=== PATIENT | female | born 1935 | race Hispanic/Latino ===

== ENCOUNTER 2017-07-28 20:04 | Inpatient (IN) | payer MEDICARE ==
[2017-07-28] MEDS ORDERED: Sodium Chloride 0.9% 500 ML IV STA (20:30)
[2017-07-28 20:54] LABS: BASO # 0.03 K/mm3 (0.0-2.0); BASO % 0.3 % (0.0-3.0); EOS % 0.4 % (1.5-5.0); GRAN # 6.88 (1.4-6.5); GRAN % 75.6 % (50.0-68.0); HEMOGLOBIN 11.6 g/dL (12.0-16.0); LYMPH # 1.4 (1.2-3.4); LYMPH % 14.8 % (22.0-35.0); MEAN CELL VOLUME 91.8 fl (80.0-105.0); MEAN CORPUSCULAR HEMOGLOBIN 29.8 pg (25.0-35.0); MEAN CORPUSCULAR HGB CONC 32.5 g/dl (31.0-37.0); MEAN PLATELET VOLUME 9.9 fl (7.0-11.0); MONO # 0.8 (0.1-0.6); MONO % 8.9 % (1.0-6.0); RBC 3.89 10^6/uL (3.5-6.1); RED CELL DISTRIBUTION WIDTH 14.4 % (11.5-14.5); WHITE BLOOD COUNT 9.1 10^3/ul (4.5-11.0)
[2017-07-28 21:03] LABS: ALB/GLOB RATIO 1.3 (1.1-1.8); ALBUMIN 3.8 g/dL (3.0-4.8); ALT/SGPT 50 U/L (7-56); AST/SGOT 45 U/L (14-36); BLOOD UREA NITROGEN 17 mg/dL (7-21); CALCIUM 8.6 mg/dL (8.4-10.5); GFR AFRICAN-AMERICAN > 60; GFR NON-AFRICAN AMERICAN > 60
[2017-07-28 21:15] LABS: B-TYPE NATRIURETIC PEPTIDE 203 pg/mL (0-450); TROPONIN I 0.02 ng/mL
--- NOTE | 2017-07-28 21:26 | ED PDOC ---
Arrival/HPI - General Chief Complaint: Dizziness/Lightheaded Time Seen by Provider: 07/28/17 20:23 Historian: Patient - History of Present Illness Narrative History of Present Illness (Text): 07/28/17 21:19 82-year-old female presents today with nausea that started at noon. Patient denies chest pain or shortness of breath. Denies fevers or chills. Patient denies any urinary symptoms. Patient denies abdominal pain. Patient denies headache but states she is feeling lightheaded. No medications have been taken for nausea at home. Patient denies chest pain or shortness of breath. Patient denies sick contacts. Patient states 2 days ago she developed nasal congestion and a feeling of postnasal drip and states she has slight cough from the post nasal drip. Time/Duration: Other (12 noon today) Symptom Onset: Sudden Symptom Course: Unchanged Past Medical History - Provider Review Nursing Documentation Reviewed: Yes - Travel History Have you recently traveled outside [place] w/in the past 3 mons?: No - Infectious Disease Hx of Infectious Diseases: None - Reproductive Menopause: Yes - Cardiac Hx Pacemaker: No - Neurological Hx Paralysis: No - Hematological/Oncological Hx Blood Transfusions: No - Musculoskeletal/Rheumatological Hx Musculoskeletal Disorders: Yes - Psychiatric Hx Substance Use: No - Anesthesia Hx Anesthesia Reactions: No Hx Malignant Hyperthermia: No Family/Social History - Physician Review Nursing Documentation Reviewed: Yes Family/Social History: Unknown Family HX Smoking Status: Unknown If Ever Smoked Hx Alcohol Use: Yes (SOCIAL WINE) Hx Substance Use: No Allergies/Home Meds Allergies/Adverse Reactions: Allergies No Known Allergies Allergy (Verified 05/31/14 12:56) Home Medications: Home Meds Medication Instructions Recorded Confirmed Adalimumab [Humira] 40 mg SC Q2W 05/31/14 07/28/17 Celecoxib [celeBREX] 200 mg PO DAILY 05/31/14 07/28/17 Estradiol [Estradiol Transdermal 1 patch TD SAT 05/31/14 07/28/17 System] Leflunomide [Arava] 20 mg PO DAILY 07/28/17 07/28/17 Prednisone [Sandhya] 5 mg PO DAILY 07/28/17 07/28/17 Review of Systems - Review of Systems Constitutional: absent: Fevers ENT: Sinus Congestion. absent: Sore Throat Respiratory: absent: SOB, Cough Cardiovascular: absent: Chest Pain, Palpitations Gastrointestinal: Nausea. absent: Abdominal Pain, Constipation, Diarrhea, Vomiting Genitourinary Female: absent: Dysuria, Frequency, Hematuria Musculoskeletal: absent: Arthralgias, Back Pain Skin: absent: Rash, Pruritis Neurological: Dizziness. absent: Headache Psychiatric: absent: Anxiety, Depression Physical Exam Vital Signs Reviewed: Yes Vital Signs Temp Pulse Resp BP Pulse Ox 07/28/17 23:00 78 18 142/75 96 07/28/17 21:50 100.6 F H 07/28/17 21:34 100.6 F H 07/28/17 20:34 98.8 F 84 17 155/72 H 96 Temperature: Afebrile Blood Pressure: Normal Pulse: Regular Respiratory Rate: Normal Appearance: Positive for: Well-Appearing, Non-Toxic, Comfortable Pain Distress: None Mental Status: Positive for: Alert and Oriented X 3 - Systems Exam Head: Present: Atraumatic Pupils: Present: PERRL Extroacular Muscles: Present: EOMI Conjunctiva: Present: Normal Ears: Present: Normal, NORMAL TM Mouth: Present: Moist Mucous Membranes Pharnyx: Present: Normal. No: ERYTHEMA, EXUDATE Nose (External): Present: Atraumatic Neck: Present: Normal Range of Motion, Trachea Midline Respiratory/Chest: Present: Good Air Exchange, Rhonchi. No: Clear to Auscultation, Respiratory Distress, Accessory Muscle Use, Retracting Cardiovascular: Present: Regular Rate and Rhythm, Normal S1, S2. No: Murmurs Abdomen: No: Tenderness, Distention, Peritoneal Signs, Rebound, Guarding Back: Present: Normal Inspection. No: Midline Tenderness, Paraspinal Tenderness Upper Extremity: Present: Normal ROM Lower Extremity: Present: Normal ROM Neurological: Present: GCS=15 Skin: Present: Warm, Dry, Normal Color. No: Rashes Psychiatric: Present: Alert, Oriented x 3 Medical Decision Making ED Course and Treatment: 07/28/17 21:28 pt with nausea since noon today. pt with cough x 2 days. cbc; wnl cmp; wnl trop: 0.02 ekg; NSR at 86b/m no st elevations. normal axis, normal intervals. cxr: wnl CT of head; FINDINGS: Brain: Unremarkable. No hemorrhage. No significant white matter disease. No edema. Ventricles: Unremarkable. No ventriculomegaly. Bones/joints: Unremarkable. No acute fracture. Soft tissues: Unremarkable. Sinuses: Unremarkable as visualized. No acute sinusitis. Mastoid air cells: Unremarkable as visualized. No mastoid effusion. IMPRESSION: No evidence of an acute intracranial abnormality rectal temp; 100.6 tylenol 975mg po pt reassessment; pt feeling better after zofran. pt reassessment; nausea has returned; addition zofran given. blood cultures and urine cultures pending. pt with low grade fever in er; with cough; will start rocephin and zithromax for PNA. case discussed with Dr. Cornejo; will Admit observational status to Tele for nausea, r/o acs cough r/o PNA pts casework specialist is dr. lindsay. impression; nausea, dizziness, cough Admit observational status to tele; Dr. cornejo Reassessment Condition: Re-examined, Improved - Lab Interpretations Lab Results: 07/28/17 20:40 07/28/17 20:40 Lab Results 07/28/17 22:20: Urine Color Yellow, Urine Appearance Clear, Urine pH 8.0, Ur Specific O[place]e 1.015, Urine Protein Negative, Urine Glucose (UA) Negative, Urine Ketones 15 H, Urine Blood Negative, Urine Nitrate Negative, Urine Bilirubin Negative, Urine Urobilinogen 0.2, Ur Leukocyte Esterase Negative 07/28/17 20:40: WBC 9.1 D, RBC 3.89, Hgb 11.6 L, Hct 35.7 L, MCV 91.8 D, MCH 29.8, MCHC 32.5, RDW 14.4, Plt Count 131, MPV 9.9, Gran % 75.6 H, Lymph % (Auto ) 14.8 L, Fajardo % (Auto) 8.9 H, Eos % (Auto) 0.4 L, Baso % (Auto) 0.3, Gran # 6.88 H, Lymph # (Auto) 1.4, F[place]ardo # (Auto) 0.8 H, Eos # (Auto) 0.0, Baso # (Auto ) 0.03 07/28/17 20:40: Sodium 137, Potassium 3.5 L, Chloride 101, Carbon Dioxide 27, Anion Gap 13, BUN 17, Creatinine 0.7, Est GFR ( Amer) > 60, Est GFR (Non- Af Amer) > 60, Random Glucose 107, Calcium 8.6, Total Bilirubin 0.5, AST 45 H, ALT 50, Alkaline Phosphatase 73, Lactate Dehydrogenase 550, Total Creatine Kinase 87, Troponin I 0.02, NT-Pro-B Natriuret Pep 203, Total Protein 6.8, Albumin 3.8, Globulin 3.0, Albumin/Globulin Ratio 1.3, Lipase < 10 L - RAD Interpretation Radiology Orders: 07/28/17 20:30 CHEST PORTABLE [RAD] Stat 07/28/17 20:31 HEAD W/O CONTRAST [CT] Stat - Medication Orders Current Medication Orders: Discontinued Medications Acetaminophen (Tylenol 325mg Tab) 975 mg PO STAT STA Stop: 07/28/17 21:36 Last Admin: 07/28/17 21:50 Dose: 975 mg MAR Pain/Vitals Document 07/28/17 21:50 JOL (Rec: 07/28/17 21:52 JOL [id number]) Pain Reassessment Is This A Pain ReAssessment? No Sleep Is patient sleeping during reassessment? No Presence of Pain Presence of Pain No Vitals Temperature (97.6 F-99.6 F) 100.6 F Temperature Source Rectal Aspirin (Aspirin) 325 mg PO STAT STA Stop: 07/28/17 21:55 Last Admin: 07/28/17 22:23 Dose: 325 mg Sodium Chloride (Sodium Chloride 0.9%) 500 mls @ 999 mls/hr IV .Q31M STA Stop: 07/28/17 21:00 Last Admin: 07/28/17 20:44 Dose: 999 mls/hr eMAR Start Stop Document 07/28/17 20:44 JOL (Rec: 07/28/17 20:44 JOL [id number]) Intravenous Solution Start Date 07/28/17 Start Time 20:44 End Date 07/28/17 End time 21:14 Total Infusion Time 30 Ceftriaxone Sodium (Rocephin 1 Gram Ivpb) 1 gm in 100 mls @ 200 mls/hr IVPB STAT STA PRN Reason: Protocol Stop: 07/28/17 22:21 Last Admin: 07/28/17 22:22 Dose: 200 mls/hr eMAR Start Stop Document 07/28/17 22:22 JOL (Rec: 07/28/17 22:23 JOL [id number]) Intravenous Solution Start Date 07/28/17 Start Time 22:22 End Date 07/28/17 End time 22:52 Total Infusion Time 30 Azithromycin (Zithromax 500mg In Ns) 500 mg in 250 mls @ 167 mls/hr IVPB STAT STA PRN Reason: Protocol Stop: 07/28/17 23:21 Last Admin: 07/28/17 23:11 Dose: 167 mls/hr eMAR Start Stop Document 07/28/17 23:11 JOL (Rec: 07/28/17 23:11 JOL [id number]) Intravenous Solution Start Date 07/28/17 Start Time 23:11 End Date 07/29/17 End time 00:41 Total Infusion Time 90 Ondansetron HCl (Zofran Inj) 4 mg IVP STAT STA Stop: 07/28/17 20:31 Last Admin: 07/28/17 20:43 Dose: 4 mg IVP Administration Document 07/28/17 20:43 JOL (Rec: 07/28/17 20:44 JOL [id number]) Charges for Administration # of IVP Administrations 1 Ondansetron HCl (Zofran Inj) 4 mg IVP STAT STA Stop: 07/28/17 23:18 Last Admin: 07/28/17 23:33 Dose: 4 mg IVP Administration Document 07/28/17 23:33 JOL (Rec: 07/28/17 23:33 JOL [id number]) Charges for Administration # of IVP Administrations 1 Disposition/Present on Arrival - Present on Arrival Any Indicators Present on Arrival: No History of DVT/PE: No History of Uncontrolled Diabetes: No Urinary Catheter: No History of Decub. Ulcer: No History Surgical Site Infection Following: None - Disposition Have Diagnosis and Disposition been Completed?: Yes Diagnosis: Nausea, Dizziness, Cough Disposition: HOSPITALIZED Disposition Time: 00:01 Patient Plan: Observation Patient Problems: Current Active Problems Problem Status Onset Nausea Acute Condition: FAIR Referrals: Jaswinder Cornejo MD [Primary Care Provider] - Follow up with primary Forms: 5o9 (Korean)
[2017-07-28 21:51] LABS: LIPASE < 10 U/L (23-300)
[2017-07-28] MEDS ORDERED: cefTRIAXone 1 gm 1 GM/100 ML BAG IVPB STA (21:52)
[2017-07-28] MEDS ORDERED: Azithromycin 500MG/NS 250ml 500 MG/250 ML BAG IVPB STA (21:52)
[2017-07-28 22:45] LABS: URINE BILIRUBIN NEGATIVE (NEGATIVE); URINE BLOOD NEGATIVE (NEGATIVE); URINE GLUCOSE (UA) NEGATIVE (NEGATIVE); URINE LEUKOCYTE ESTERASE NEGATIVE Leu/uL (NEGATIVE); URINE PROTEIN NEGATIVE mg/dL (<30 mg/dL); URINE UROBILINOGEN 0.2 E.U./dL (<1 E.U./dL)
[2017-07-28 22:46] LABS: URINE APPEARANCE CLEAR (CLEAR); URINE COLOR YELLOW (YELLOW)
[2017-07-28] MEDS ORDERED: Naloxone 0.4 mg/ml Inj (Adult) ONE (23:13)
--- NOTE | 2017-07-28 23:44 | CT ---
EXAM: CT Head Without Intravenous Contrast CLINICAL HISTORY: 82 years old, female; Signs and symptoms; Dizziness; Additional info: Dizziness, nausea TECHNIQUE: Axial computed tomography images of the head/brain without intravenous contrast. All CT scans at this facility use one or more dose reduction techniques, viz.: automated exposure control; ma/kV adjustment per patient size (including targeted exams where dose is matched to indication; i.e. head); or iterative reconstruction technique. Coronal and sagittal reformatted images were created and reviewed. COMPARISON: No relevant prior studies available. FINDINGS: Brain: Unremarkable. No hemorrhage. No significant white matter disease. No edema. Ventricles: Unremarkable. No ventriculomegaly. Bones/joints: Unremarkable. No acute fracture. Soft tissues: Unremarkable. Sinuses: Unremarkable as visualized. No acute sinusitis. Mastoid air cells: Unremarkable as visualized. No mastoid effusion. IMPRESSION: No evidence of an acute intracranial abnormality.
[2017-07-29] MEDS ORDERED: Levalbuterol 0.63 MG/3 ML Inhal Soln UD IH STA (02:49)
[2017-07-29 03:13] VITALS: BMI 21.2
--- NOTE | 2017-07-29 05:55 | CP.PCM.PN ---
Subjective - Date & Time of Evaluation Date of Evaluation: 07/29/17 Time of Evaluation: 02:00 - Subjective Subjective: called by nurse pt has frequent pvc on monitor . pt denies complaints has hx of copd pul htn,?pneumonia. Objective - Vital Signs/Intake and Output Vital Signs (last 24 hours): Temp Pulse Resp BP Pulse Ox 99.1 F 79 18 142/68 95 07/29/17 05:37 07/29/17 05:37 07/29/17 05:37 07/29/17 05:37 07/29/17 05:37 Intake and Output: 07/28/17 07/29/17 18:59 06:59 Output Total 400 Balance -400 - Constitutional Appears: No Acute Distress - Head Exam Head Exam: NORMOCEPHALIC - Eye Exam Eye Exam: Normal appearance Pupil Exam: PERRL - ENT Exam ENT Exam: Mucous Membranes Moist - Neck Exam Neck Exam: Full ROM - Respiratory Exam Respiratory Exam: Decreased Breath Sounds - Cardiovascular Exam Cardiovascular Exam: RRR, +S1, +S2 - GI/Abdominal Exam GI & Abdominal Exam: Soft - Rectal Exam Rectal Exam: Deferred - Extremities Exam Extremities Exam: Normal Inspection - Neurological Exam Neurological Exam: Alert, Awake, Oriented x3 - Psychiatric Exam Psychiatric exam: Normal Affect - Skin Skin Exam: Normal Color Assessment and Plan - Assessment and Plan (Free Text) Assessment: frequent pvc. hx of copd ,pulmonary htn ?pneumonia. Plan: pt was given xopnex nebs x1 pt improved.
--- NOTE | 2017-07-29 08:56 | RAD ---
HISTORY: dizziness, nausea, weakness COMPARISON: 09/13/2016 FINDINGS: LUNGS: No active pulmonary disease. PLEURA: No significant pleural effusion identified, no pneumothorax apparent. CARDIOVASCULAR: Normal. OSSEOUS STRUCTURES: No significant abnormalities. VISUALIZED UPPER ABDOMEN: Normal. OTHER FINDINGS: None. IMPRESSION: No active disease.
[2017-07-29 09:42] LABS: BLOOD UREA NITROGEN 13 mg/dL (7-21); CALCIUM 8.2 mg/dL (8.4-10.5); GFR AFRICAN-AMERICAN > 60; GFR NON-AFRICAN AMERICAN > 60
[2017-07-29] MEDS ORDERED: Potassium Chloride 10 mEq ER Tab PO ONE (10:00)
[2017-07-29] MEDS ORDERED: Non Formulary Medication (Prednisone [Rayos] 5 MG) PO SCH (10:00)
[2017-07-29] MEDS ORDERED: Home Med 1 UNIT IH SCH ×2 (12:30)
--- NOTE | 2017-07-29 12:47 | CT ---
PROCEDURE: CT Chest without contrast HISTORY: cough/fever COMPARISON: None. TECHNIQUE: Contiguous axial images were obtained through the chest without intravenous contrast enhancement. Sagittal and coronal reconstructions were performed. Radiation dose (DLP): 155 mGy-cm. This CT exam was performed using one or more of the following dose reduction techniques: Automated exposure control, adjustment of the mA and/or kV according to patient size, and/or use of iterative reconstruction technique. FINDINGS: LUNGS: There is a dense area of consolidation in the posterior left lower lobe. This is consistent with pneumonia. There is a small spiculated scar in the left lung apex. MEDIASTINUM: Unremarkable thoracic aorta. No aneurysm. Normal sized heart. Main pulmonary artery unremarkable. No vascular congestion. No lymphadenopathy. PLEURA: No pleural fluid. No pneumothorax. BONES: No fracture. No destructive lesion. UPPER ABDOMEN: Grossly unremarkable. OTHER FINDINGS: None. IMPRESSION: Dense area of consolidation in the left lower lobe consistent with pneumonia.
[2017-07-29] MEDS: cefTRIAXone 1 gm 1 GM/100 ML BAG IVPB SCH (13:40)
[2017-07-29] MEDS: Azithromycin 500MG/NS 250ml 500 MG/250 ML BAG IVPB SCH (13:41)
--- NOTE | 2017-07-29 16:56 | US ---
PROCEDURE: Bilateral carotid artery duplex ultrasound HISTORY: Carotid stenosis syncope. PHYSICIAN(S): Rajendra Taylor MD. TECHNIQUE: Duplex sonography and color-flow Doppler were used to evaluate the carotid bifurcations and limited segments of the vertebral arteries bilaterally. FINDINGS: There is mild smooth heterogeneous plaque noted at the carotid bifurcations bilaterally. The peak systolic velocity in the proximal right internal carotid artery is 147 cm/sec. This corresponds to a 40-59 percent proximal right ICA stenosis. Normal systolic velocities are noted in the proximal right external carotid artery. There is antegrade flow in the right vertebral artery. The peak systolic velocity in the proximal left internal carotid artery is 139 cm/sec. This corresponds to a 40-59 percent proximal left ICA stenosis. Normal systolic velocities are noted in the proximal left external carotid artery. There is antegrade flow in the left vertebral artery. IMPRESSION: 1. Bilateral 40-59 percent proximal ICA stenoses. 2. Antegrade flow in both vertebral arteries.
--- NOTE | 2017-07-29 17:47 | CON ---
DATE: 07/29/2017 INDICATIONS: Congestion, cough, nausea, and lightheadedness. HISTORY OF PRESENT ILLNESS: This is an 82-year-old woman, known to me, who was admitted through the emergency room yesterday when she presented with congestion, predominantly nasal with cough, nausea, and lightheadedness. There was some shortness of breath. There was no chest pain, orthopnea, PND, syncope, vertigo, palpitation, edema, claudication, fever, chills, rigor, sweats, hemoptysis, abdominal pain, diarrhea, constipation, melena. PAST MEDICAL HISTORY: Notable for rheumatoid arthritis and hypertension. There is no cardiac history. There is a history of mild mitral regurgitation and tricuspid regurgitation on echocardiography and MVP in the past.. She has had bunion surgery. There is no history of rheumatic fever, myocardial infarction, angina, congestive heart failure, arrhythmia. There is no history of stroke, TIA, diabetes, hyperlipidemia, or gout. MEDICATIONS AT THE TIME OF ADMISSION: Include Humira, Celebrex, estradiol transdermal patch, Arava, prednisone, BREO ELLIPTA, vitamin E and vitamin D. ALLERGIES: THERE ARE NO MEDICATION ALLERGIES. SOCIAL HISTORY: She lives at home. She is ambulatory. She does not smoke cigarettes. She drinks alcohol infrequently on social occasions. FAMILY HISTORY: Noncontributory. REVIEW OF SYSTEMS: A 10-point review of systems is otherwise unremarkable except as noted above. PHYSICAL EXAMINATION: GENERAL: She is a well-developed woman, lying in bed on telemetry, in no acute distress. VITAL SIGNS: She is in sinus rhythm, PVCs are noted, heart rate 79 beats per minute. Temperature max 100.6, currently 99.1. Blood pressure 142/68, respirations 18, O2 sat 95% to 97% on room air. HEENT: Reveal no neck vein distention, thyromegaly, or carotid bruits. Mucous membranes are moist. Conjunctivae are pink. NECK: Supple. LUNGS: Lung davison clear. HEART: Reveals normal first and second heart sounds. Soft systolic murmur at the lower left sternal border. ABDOMEN: Soft. Bowel sounds are present. No mass, organomegaly, tenderness, rebound, or guarding. No CVA tenderness. No palpable abdominal aortic aneurysm. EXTREMITIES: Reveal no cyanosis, clubbing, or edema. NEUROLOGIC: Awake, alert, and oriented. SKIN: Warm and dry. No rash or cellulitis. PSYCHIATRIC: Normal as to mood and affect. LABORATORY AND IMAGING: Chest x-ray is a portable study, it is not yet interpreted. To me, it shows clear lung davison, no evidence of CHF, infiltrate, or effusion. EKG shows sinus rhythm, no acute changes. CT scan of the head shows no evidence of acute intracranial abnormality. White count normal, hemoglobin of 11.6, hematocrit 35.7, platelet count 131,000. Electrolytes normal with a potassium of 3.5. BUN 17, creatinine 0.7. Mild elevation of AST is noted, otherwise LFTs unremarkable. CK 87, troponin negative x2. BNP 203. Lipase less than 10. Urinalysis noted. IMPRESSION: Mirtha Wills is an 82-year-old woman admitted with nasal congestion, cough, nausea, and lightheadedness, not feeling well, came to the emergency room, admitted with possible pneumonia, await official chest x-ray interpretation, low-grade fever. I will review her old records. She has gotten antibiotics. She is cultured. She is on IV fluids. She feels better this morning. I will follow along with you. I will make additional recommendations based on her clinical course. We will continue telemetry. We will check for postural vital signs. We will continue her usual medications for now. Carroll Santana MD [facility]
--- NOTE | 2017-07-29 17:57 | CARD ---
APPROVED REPORT EKG Measurement Heart [id number] <Conclusion> Normal sinus rhythm Possible Left atrial enlargement Borderline ECG
[2017-07-29] MEDS ORDERED: Home Med 1 UNIT OD SCH ×2 (18:00)
[2017-07-29] MEDS ORDERED: [UNRECOGNIZED DRUG - OTHER] OD SCH ×2 (18:00→21:31)
[2017-07-29] MEDS: Levalbuterol 1.25 MG/3 ML Inhal Soln UD IH SCH (19:45)
--- NOTE | 2017-07-29 23:16 | HP ---
DATE: 07/29/2017 HISTORY OF PRESENT ILLNESS: The patient is 82-year-old, states she had eye surgery cataract done on her right eye on Saturday, did well on Saturday and , but Saturday she started to have upper respiratory symptoms, had cough, congestion, started to have runny stuffy nose, headache, ear pressure, and yesterday evening when she got up, she was unable to stand up or walk, so she called her daughter who called ambulance and she was brought to emergency room, did have fever at home, denies any nausea or vomiting. No history of hemoptysis. No hematemesis. PAST MEDICAL HISTORY: Significant for: 1. Hypertension. 2. Rheumatoid arthritis. 3. Recent cataract extraction done. ALLERGIES: NOT ALLERGIC TO ANY MEDICATIONS. MEDICATION AT HOME: The patient is on oxybutynin 5 mg daily, Breo Ellipta, Celebrex 200 daily, Humira 40 mg subcu every other week. She is on estradiol or transdermal patch 5 mg of prednisone daily and mg daily. SOCIAL HISTORY: She is single, lives with her daughter, used to be a heavy smoker in remote past. PHYSICAL EXAMINATION GENERAL: The patient is awake, alert, oriented, communicative. VITAL SIGNS: The patient is afebrile, pulse 79, respirations 18, blood pressure 142/68. LUNGS: Bilateral good airflow. Few expiratory rhonchi. HEART: S1 and S2 audible. ABDOMEN: Soft. Nontender. No rebound. No guarding. NEUROLOGIC: The patient is awake, alert, oriented, communicative. LABORATORY EXAM: WBC is 9.1, hemoglobin 11.6, hematocrit 35.7, platelet of 131. Chemistry: Sodium 141, potassium 3.8, chloride 107, CO2 of 27, BUN 13, creatinine 0.7, blood sugar of 98, calcium 8.2. AST 45. Two sets of troponin is negative. CT scan of the head. No evidence of acute intracranial abnormality. X-ray of chest is unremarkable. ASSESSMENT: 1. Upper respiratory symptoms. 2. Vertigo. 3. History of hypertension. 4. Rheumatoid arthritis. 5. Probably benign positional vertigo. PLAN: We will start her on Antivert. I will order for CT of the chest, start her on Claritin. She is on prednisone 5 mg daily for her rheumatoid arthritis, we will continue that. Request for physical therapy. We will reevaluate in a.m. if the patient feels better, we will make discharge plans for tomorrow. Jaswinder Cornejo MD
--- NOTE | 2017-07-30 07:55 | CP.PCM.PN ---
Subjective - Date & Time of Evaluation Date of Evaluation: 07/30/17 Time of Evaluation: 07:00 - Subjective Subjective: Stable on 2R. No CP or SOB. No dizziness now. She did feel flushed earlier this AM. V/S noted. 99.9, RSR at 76 BPM. Normal orthostatic V/S. PE: Lungs: clear cor.: S1S2 Abd.: soft Ext.: no edema Neuro.: alert BC X2 NG at [address] chest noted: LLL infiltrate Car. U/S: Bilat 40 - 59% Objective - Vital Signs/Intake and Output Vital Signs (last 24 hours): Temp Pulse Resp BP Pulse Ox 99.9 F H 76 18 164/83 H 94 L 07/30/17 06:00 07/30/17 06:00 07/30/17 06:00 07/30/17 06:00 07/30/17 06:00 Intake and Output: 07/30/17 07/30/17 06:59 18:59 Intake Total 480 Balance 480 - Medications Medications: Current Medications Home Med (Home Med) 1 unit PO DAILY [facility] Home Med (Home Med) 0 unit IH DAILY [facility] Home Med (Home Med) 0 unit IH DAILY [facility] Home Med (Home Med) 0 unit OD BID [facility] Ceftriaxone Sodium (Rocephin 1 Gram Ivpb) 1 gm in 100 mls @ 100 mls/hr IVPB DAILY [facility] PRN Reason: Protocol Last Admin: 07/29/17 13:40 Dose: 100 mls/hr Azithromycin (Zithromax 500mg In Ns) 500 mg in 250 mls @ 167 mls/hr IVPB DAILY [facility] PRN Reason: Protocol Last Admin: 07/29/17 13:41 Dose: 167 mls/hr Levalbuterol HCl (Xopenex) 1.25 mg IH TIDRESP [facility] Last Admin: 07/29/17 19:45 Dose: 1.25 mg Loratadine (Claritin) 10 mg PO DAILY [facility] Last Admin: 07/29/17 13:41 Dose: 10 mg Meclizine HCl (Antivert) 12.5 mg PO TID [facility] Last Admin: 07/29/17 18:39 Dose: Not Given Meloxicam (Mobic) 15 mg PO DAILY [facility] Non-Formulary Medication (Celecoxib [Celebrex]) 200 mg PO HS [facility] Last Admin: 07/30/17 00:00 Dose: Not Given Non-Formulary Medication (Oxybutynin [Oxytrol For Women]) 1 each TD Q72 MICAH Prednisone (Prednisone Tab) 5 mg PO DAILY MICAH Last Admin: 07/29/17 10:02 Dose: 5 mg Promethazine HCl/Dextromethorphan (Phenergan Dm Syrup) 5 ml PO Q6H PRN PRN Reason: Cough - Labs Labs: 07/29/17 08:30 Assessment and Plan - Assessment and Plan (Free Text) Assessment: Cough, Congestion, Lightheadedness, Fever LLL pneumonia on CT Chest HBP RA CVD S/P recent cataract surgery H/O MVP, Mild MR and TR on echo Plan: AB OOB as prosper. ASA 81/day Out-pt echo planned for next week.
[2017-07-30] MEDS: Levalbuterol 1.25 MG/3 ML Inhal Soln UD IH SCH ×3 (08:05→20:40)
[2017-07-30] MEDS: cefTRIAXone 1 gm 1 GM/100 ML BAG IVPB SCH (09:08)
[2017-07-30] MEDS ORDERED: Home Med 1 UNIT PO SCH (10:00)
[2017-07-30] MEDS: INCRUSE 62.5 MCG IH SCH (10:10)
[2017-07-30 10:15] LABS: BASO # 0.02 K/mm3 (0.0-2.0); BASO % 0.4 % (0.0-3.0); EOS # 0.1 (0.0-0.7); EOS % 1.5 % (1.5-5.0); GRAN # 3.28 (1.4-6.5); GRAN % 69.1 % (50.0-68.0); HEMOGLOBIN 11.1 g/dL (12.0-16.0); LYMPH # 1.1 (1.2-3.4); LYMPH % 22.2 % (22.0-35.0); MEAN CELL VOLUME 92.7 fl (80.0-105.0); MEAN CORPUSCULAR HEMOGLOBIN 30.2 pg (25.0-35.0); MEAN CORPUSCULAR HGB CONC 32.6 g/dl (31.0-37.0); MEAN PLATELET VOLUME 9.3 fl (7.0-11.0); MONO # 0.3 (0.1-0.6); MONO % 6.8 % (1.0-6.0); RBC 3.68 10^6/uL (3.5-6.1); RED CELL DISTRIBUTION WIDTH 14.7 % (11.5-14.5); WHITE BLOOD COUNT 4.7 10^3/ul (4.5-11.0)
[2017-07-30] MEDS: Azithromycin 500MG/NS 250ml 500 MG/250 ML BAG IVPB SCH (10:16)
[2017-07-30] MEDS: LEFLUNOMIDE 20 MG PO SCH (10:16)
[2017-07-30 10:29] LABS: ALB/GLOB RATIO 1.1 (1.1-1.8); ALBUMIN 3.4 g/dL (3.0-4.8); ALT/SGPT 76 U/L (7-56); AST/SGOT 68 U/L (14-36); BLOOD UREA NITROGEN 14 mg/dL (7-21); CALCIUM 8.2 mg/dL (8.4-10.5); GFR AFRICAN-AMERICAN > 60; GFR NON-AFRICAN AMERICAN > 60
--- NOTE | 2017-07-30 14:22 | PN ---
DATE: 07/30/2017 SUBJECTIVE: The patient is 82-year-old, seen and examined, sitting in chair, still feels sick, has cough, congestion with body aches and pain and feels chills at time, having cough. Denies any nausea or vomiting. PHYSICAL EXAMINATION: VITAL SIGNS: She has a temperature of 99.9, pulse 76, ____ 147/81. LUNGS: Soft crackle at the right lower lung area and in the left lower lung area. HEART: S1 and S2 audible. ABDOMEN: Soft, nontender. No rebound, no guarding. NEUROLOGIC: The patient is awake, alert, and oriented. Able to communicate. LABORATORY DATA: WBC 12.7, hemoglobin 11, hematocrit 34, platelets 130. Chemistry: Sodium 140, potassium 3.2, chloride 106, CO2 24, BUN 14, creatinine 0.7, blood sugar 185, phosphorus is 1.6. Blood cultures and urine cultures are negative. She had CT scan of the chest done that shows dense area of consolidation in the left lower lobe consistent with pneumonia. ASSESSMENT: 1. Community-acquired pneumonia. 2. Hypokalemia. 3. Rheumatoid arthritis. 4. Hypertension. PLAN: We will continue the patient on current antibiotic. I will discontinue Telemetry. Supplement potassium. Currently, she is on Rocephin and Flagyl. We will continue that and we will follow up this patient in the morning. Jaswinder Cornejo MD
[2017-07-30] MEDS: Potassium & Sodium Phosphate PO SCH (18:24)
[2017-07-30] MEDS: GATIFLOXACIN OD SCH (18:27)
[2017-07-30] MEDS: BROMFENAC OD SCH (18:27)
[2017-07-30] MEDS: PREDNISOLONE OD SCH (18:27)
[2017-07-30] MEDS ORDERED: Home Med 1 UNIT PO STA (23:38)
[2017-07-31 07:00] VITALS: O2SAT 97
[2017-07-31] MEDS: Levalbuterol 1.25 MG/3 ML Inhal Soln UD IH SCH ×3 (08:26→20:35)
[2017-07-31] MEDS: LEFLUNOMIDE 20 MG PO SCH (10:47)
[2017-07-31] MEDS: cefTRIAXone 1 gm 1 GM/100 ML BAG IVPB SCH (10:49)
[2017-07-31] MEDS: BROMFENAC OD SCH ×3 (10:50→17:38)
[2017-07-31] MEDS: GATIFLOXACIN OD SCH ×3 (10:50→17:38)
[2017-07-31] MEDS: PREDNISOLONE OD SCH ×3 (10:50→17:38)
[2017-07-31] MEDS: Azithromycin 500MG/NS 250ml 500 MG/250 ML BAG IVPB SCH (10:50)
[2017-07-31] MEDS: INCRUSE 62.5 MCG IH SCH (10:51)
[2017-07-31] MEDS: Potassium & Sodium Phosphate PO SCH ×2 (10:51→17:38)
--- NOTE | 2017-07-31 11:13 | PN ---
DATE: 07/31/2017 SUBJECTIVE: The patient is seen lying in bed on telemetry. She is comfortable at present time. She denies any chest pain or lightheadedness. Her cough is improving. CURRENT MEDICATIONS: Include Celebrex, Claritin, Arava, Incruse inhaler, Breo Ellipta inhaler, prednisone 5 mg daily, Rocephin, Xopenex and Zithromax. OBJECTIVE: GENERAL: She is an elderly woman, appears comfortable at rest. VITAL SIGNS: Her blood pressure is 140/76 with pulse of 82 and sinus respirations are 14. She is afebrile. HEENT: No JVD. CHEST: Bilateral scattered rhonchi. HEART: PMI displaced laterally with soft systolic murmur in left sternal border. ABDOMEN: Soft and nontender. Normoactive bowel sounds. EXTREMITIES: No edema. DIAGNOSTIC DATA: No blood work pending from this morning. IMPRESSION: 1. Left lower lobe pneumonia, clinically improved. 2. History of hypertension. 3. History of mitral and tricuspid regurgitation. RECOMMENDATIONS: Current medications should be continued at the present time. If she has recurrence of vertigo, Antivert can be continued. No further cardiac workup appears necessary at this time. We will be happy to follow along as needed. Mark Mejias MD MTDD
[2017-07-31] MEDS ORDERED: guaiFENesin DM 200 mg-20 mg/10 ml UD PO PRN (12:00)
--- NOTE | 2017-07-31 16:08 | PN ---
DATE: 07/31/2017 SUBJECTIVE: Patient is 82 years old, seen and examined. States she still feels she has off and on, still having cough with mild shortness of breath. OBJECTIVE: VITAL SIGNS: She is afebrile, pulse 75, respirations 18, blood pressure 128/63. LUNGS: Bilateral fair airflow. Soft crackle at the bases. HEART: S1, S2 audible. ABDOMEN: Soft, nontender, no rebound, no guarding. NEUROLOGIC: She is awake, alert, oriented, communicative. EXTREMITIES: Bilateral legs, no edema. LABORATORY DATA: Blood cultures and urine cultures are negative. ASSESSMENT: 1. Community-acquired pneumonia. 2. [id number] carotid stenosis. 3. Hypertension. 4. Rheumatoid arthritis. 5. Status post near syncope. 6. Left lower lobe pneumonia. PLAN: We will continue patient on current antibiotics. Continue nebulizer treatment. Add some antitussives, and patient is on maintenance medication also. I will change her meclizine to p.r.n. and will reevaluate patient in a.m. Possible discharge plan in a day or two. Jaswinder Cornejo MD
[2017-07-31] MEDS: Promethazine DM 6.25 mg-15 mg/5 ml Syrup PO PRN (23:03)
[2017-08-01 06:37] VITALS: BP 158/79; PULSE 65; RESP 21; TEMP 97.5
[2017-08-01] MEDS: Levalbuterol 1.25 MG/3 ML Inhal Soln UD IH SCH ×2 (07:28→13:19)
[2017-08-01 07:35] LABS: ALB/GLOB RATIO 1.1 (1.1-1.8); ALBUMIN 3.3 g/dL (3.0-4.8); ALT/SGPT 68 U/L (7-56); AST/SGOT 53 U/L (14-36); BLOOD UREA NITROGEN 23 mg/dL (7-21); CALCIUM 8.4 mg/dL (8.4-10.5); GFR AFRICAN-AMERICAN > 60; GFR NON-AFRICAN AMERICAN > 60
[2017-08-01] MEDS: Potassium & Sodium Phosphate PO SCH (09:50)
[2017-08-01] MEDS: LEFLUNOMIDE 20 MG PO SCH (09:51)
[2017-08-01] MEDS: GATIFLOXACIN OD SCH (09:51)
[2017-08-01] MEDS: PREDNISOLONE OD SCH (09:51)
[2017-08-01] MEDS: BROMFENAC OD SCH (09:51)
[2017-08-01] MEDS: INCRUSE 62.5 MCG IH SCH (09:53)
[2017-08-01] MEDS: cefTRIAXone 1 gm 1 GM/100 ML BAG IVPB SCH (09:56)
[2017-08-01] MEDS ORDERED: OXYBUTYNIN TD SCH (10:00)
[2017-08-01] MEDS: Promethazine DM 6.25 mg-15 mg/5 ml Syrup PO PRN (10:53)
--- NOTE | 2017-08-02 10:09 | DS ---
HISTORY OF PRESENT ILLNESS: Patient is 82 years old, who came to emergency room because of cough, congestion, shortness of breath; felt very weak, dizzy as if she is going to pass out. So, daughter called ambulance and she was brought to the emergency room. She was found to have left lower lobe pneumonia, treated with IV antibiotics. Seems to be doing well, wants to go home. PHYSICAL EXAMINATION: VITAL SIGNS: She is afebrile, pulse 65, respirations 21, blood pressure 158/79. LUNGS: Bilateral fair airflow. A few expiratory rhonchi with soft crackle at left lower lung region. HEART: S1 and S2 audible. ABDOMEN: Soft, nontender, no rebound, no guarding. NEUROLOGIC: She is awake, alert, oriented, communicative. LABORATORY DATA: Sodium is 141, potassium 4, chloride 108, CO2 of 26, BUN 23, creatinine 0.6, blood sugar of 93. ASSESSMENT: 1. Rheumatoid arthritis. 2. Hypertension. 3. Recent cataract extraction. PLAN: Patient is being discharged home on Zithromax 250 daily for 6 more days, Vantin 100 mg twice a day for 6 more days and 200 mg twice a day for 6 more days and then she will followup with me in the office in a week and she will resume her usual nebulizer medication. Jaswinder Cornejo MD
== END 2017-08-01 15:07 | disposition home or self-care (01) | DRG 194 ==
LOC: ED 20:04 → ERH 07-29 00:17 → 2RNO 07-29 02:11
PROVIDERS: ADMIT Internal Medicine; ATTEND Internal Medicine
DX: J18.9 Pneumonia, unspecified organism (principal); J44.0 Chronic obstructive pulmonary disease with (acute) lower respiratory infection; M06.9 Rheumatoid arthritis, unspecified; I10 Essential (primary) hypertension; E87.6 Hypokalemia; H81.10 Benign paroxysmal vertigo, unspecified ear; I08.1 Rheumatic disorders of both mitral and tricuspid valves; I27.20 Pulmonary hypertension, unspecified; I49.3 Ventricular premature depolarization; Z87.891 Personal history of nicotine dependence; I65.23 Occlusion and stenosis of bilateral carotid arteries; Z98.49 Cataract extraction status, unspecified eye; R40.2412 Glasgow coma scale score 13-15, at arrival to emergency department

== ENCOUNTER 2018-03-12 09:03 | Outpatient (CLI) | payer MEDICARE | END 2018-03-12 09:04 | disposition home or self-care (01) | LOC: LAB 09:03 ==

== ENCOUNTER 2018-04-07 10:04 | Outpatient (CLI) | payer MEDICARE | END 2018-04-07 10:05 | disposition home or self-care (01) | LOC: RAD 10:04 ==

== ENCOUNTER 2018-05-13 08:42 | Outpatient (CLI) | payer MEDICARE | END 2018-05-13 08:43 | disposition home or self-care (01) | LOC: LAB 08:42 | DX: M05.79 Rheumatoid arthritis with rheumatoid factor of multiple sites without organ or systems involvement (principal) ==

== ENCOUNTER 2018-07-07 08:40 | Outpatient (CLI) | payer MEDICARE | END 2018-07-07 08:41 | disposition home or self-care (01) | LOC: LAB 08:40 ==